=== PATIENT | male | born 1990 | race African-American/Black ===

== ENCOUNTER 2017-05-09 18:34 | Inpatient (IN) | payer MEDICAID, OTHER ==
--- NOTE | 2017-05-09 19:20 | ED ---
General Adult HPI - General Chief complaint: Psychiatric Symptoms Stated complaint: Mental Health Time Seen by Provider: 05/09/17 19:15 Source: patient, RN notes reviewed, old records reviewed Mode of arrival: ambulatory Limitations: no limitations - History of Present Illness Initial comments: This is a 26-year-old male the ER for evaluation of psychiatric illness, suicidal thoughts. Patient has history of depression as her suicidal attempts. Patient states he is an was feeling suicidal earlier today, is brought in by brother for evaluation by psychiatry - Related Data Home Medications Medication Instructions Recorded Confirmed No Known Home Medications [No 05/09/17 05/09/17 Known Home Medications] Allergies Allergy/AdvReac Type Severity Reaction Status Date / Time No Known Allergies Allergy Verified 05/09/17 21:56 Review of Systems ROS Statement: Those systems with pertinent positive or pertinent negative responses have been documented in the HPI. ROS Other: All systems not noted in ROS Statement are negative. Past Medical History Past Medical History: Asthma Additional Past Medical History / Comment(s): personality disorder, patient has reported cutting in past, murmur, palpatations, arthritis. History of Any Multi-Drug Resistant Organisms: MRSA Date of last positivie culture/infection: 2014 MDRO Source:: left leg Past Surgical History: No Surgical Hx Reported Past Anesthesia/Blood Transfusion Reactions: No Reported Reaction Past Psychological History: ADD/ADHD, Anxiety, Bipolar, Depression Smoking Status: Former smoker Past Alcohol Use History: Occasional Past Drug Use History: Marijuana, Prescription Drug Abuse - Past Family History Father Additional Family Medical History / Comment(s): Patient has not had any contact with his father Mother Additional Family Medical History / Comment(s): Mother is alive at age 46 with history of thyroid problems and bipolar. Mother's family has history of bipolar and schizophrenia. Brother(s) Additional Family Medical History / Comment(s): Patient states he has 8 siblings. His girlfriend is reportedly . General Exam Limitations: no limitations General appearance: alert, in no apparent distress Head exam: Present: atraumatic, normocephalic, normal inspection Eye exam: Present: normal appearance, PERRL, EOMI. Absent: scleral icterus, conjunctival injection, periorbital swelling ENT exam: Present: normal exam, mucous membranes moist Neck exam: Present: normal inspection. Absent: tenderness, meningismus, lymphadenopathy Respiratory exam: Present: normal lung sounds bilaterally. Absent: respiratory distress, wheezes, rales, rhonchi, stridor Cardiovascular Exam: Present: regular rate, normal rhythm, normal heart sounds. Absent: systolic murmur, diastolic murmur, rubs, gallop, clicks GI/Abdominal exam: Present: soft, normal bowel sounds. Absent: distended, tenderness, guarding, rebound, rigid Extremities exam: Present: normal inspection, full ROM, normal capillary refill. Absent: tenderness, pedal edema, joint swelling, calf tenderness Back exam: Present: normal inspection Neurological exam: Present: alert, oriented X3, CN II-XII intact Psychiatric exam: Present: normal affect, normal mood Skin exam: Present: warm, dry, intact, normal color. Absent: rash Course Vital Signs 05/09/17 05/09/17 19:02 21:10 Temperature 98.2 F 98.1 F Pulse Rate 71 60 Respiratory 16 29 H Rate Blood Pressure 146/80 120/59 O2 Sat by Pulse 98 98 Oximetry - Reevaluation(s) Reevaluation #1: 05/09/17 19:55 Patient's medically clear Medical Decision Making - Medical Decision Making 26 male who is seen and evaluated with she'll be admitted for psychiatric evaluation Disposition Clinical Impression: Depression, Psychosis Disposition: TRANSFER TO PSYCH HOSP/UNIT Condition: Fair
[2017-05-09 21:15] LABS: Amphetamine Screen,Urine Not Detected (NotDetected); Barbiturate Screen,Urine Not Detected (NotDetected); Benzodiazepines Screen,Urine Not Detected (NotDetected); Cocaine Screen,Urine Not Detected (NotDetected); Methadone Screen, Urine Not Detected (NotDetected); Opiate Screen,Urine Not Detected (NotDetected); Oxycodone Screen, Urine Not Detected (NotDetected); Phencyclidine Screen,Urine Not Detected (NotDetected); Tricyclic Antidepressant,Urine Not Detected (NotDetected); Urn Cannabinoid Scrn Detected (NotDetected)
[2017-05-09 21:48] VITALS: BMI 22.0
[2017-05-10] MEDS ORDERED: ACETAMINOPHEN TAB 325 MG TAB PO PRN (00:54)
[2017-05-10] MEDS ORDERED: MAGNESIUM HYDROXIDE 2,400 MG/10 ML CUP PO PRN (00:54)
[2017-05-10] MEDS ORDERED: MAG HYDROX/AL HYDROX/SIMETH 30 ML CUP PO PRN (00:54)
[2017-05-10] MEDS ORDERED: IBUPROFEN 800 MG TAB PO PRN (11:18)
--- NOTE | 2017-05-10 11:31 | P.MDCNMH ---
History of Present Illness H&P Date: 05/10/17 Chief Complaint: Medical management 26-year-old male past medical history of intermittent asthma, history of depression and bipolar disorder. Patient was brought into the hospital due to suicidal ideation, patient reports that his brother found him hold his Coumadin to his head and attempt to commit suicide he was meditating before committing suicide. He reports overwhelming emotions that affect his personality. He reports successful suicide attempts in the past but he was brought back with CPR using different types of "poison", self-inflicted wounds and cuts, hanging, and overdosing on medications. He currently denies any chest pain or trouble breathing denies any headache nausea or vomiting denies any dizziness or lightheadedness. He denies any changes in his urine urinary habits or bowel habits. He does report generalized body aches that are chronic around his neck and bilateral knee joint. When asked, patient claimed that he doesn't have a gun however he was at a friend's place owns a gun and he found the opportunity to get a hold on the going and attempting suicide however his brother was around who found him and brought him to the hospital. Review of Systems Pertinent positives as noted in HPI. All other systems were reviewed and are negative Past Medical History Past Medical History: Asthma Additional Past Medical History / Comment(s): personality disorder, patient has reported cutting in past, murmur, palpatations, arthritis. History of Any Multi-Drug Resistant Organisms: MRSA Date of last positivie culture/infection: 2014 MDRO Source:: left leg Past Surgical History: No Surgical Hx Reported Past Anesthesia/Blood Transfusion Reactions: No Reported Reaction Past Psychological History: ADD/ADHD, Anxiety, Bipolar, Depression Smoking Status: Former smoker Past Alcohol Use History: Occasional Past Drug Use History: Marijuana, Prescription Drug Abuse - Past Family History Father Family Medical History: No Reported History Additional Family Medical History / Comment(s): Patient has not had any contact with his father Mother Family Medical History: Diabetes Mellitus Additional Family Medical History / Comment(s): Mother is alive at age 46 with history of thyroid problems and bipolar. Mother's family has history of bipolar and schizophrenia. Brother(s) Family Medical History: No Reported History Additional Family Medical History / Comment(s): Patient states he has 8 siblings. His girlfriend is reportedly . Medications and Allergies Home Medications Medication Instructions Recorded Confirmed Type No Known Home Medications [No 05/09/17 05/09/17 History Known Home Medications] Allergies Allergy/AdvReac Type Severity Reaction Status Date / Time No Known Allergies Allergy Verified 05/09/17 21:56 Physical Exam Vitals: Vital Signs Temp Pulse Pulse Resp BP BP Pulse Ox 05/10/17 06:16 98.4 F 61 16 100/64 05/09/17 21:39 98.1 F 62 16 119/71 99 05/09/17 21:10 98.1 F 60 29 H 120/59 98 05/09/17 19:02 98.2 F 71 16 146/80 98 Intake and Output 05/09/17 05/10/17 05/10/17 22:59 06:59 14:59 Other: Weight 69.626 kg 69.626 kg Patient Weight 05/11/17 06:59 Weight 69.626 kg Constitutional: No acute distress, conversant, pleasant Eyes: Anicteric sclerae, moist conjunctiva, no lid-lag Pupils equal round reactive to light ENMT: NC/AT Oropharynx clear, no erythema, exudates Neck: Supple, FROM, no masses, or JVD No carotid bruits No thyromegaly Lungs: Clear to auscultation Clear to percussion Normal respiratory effort, no accessory muscle use Cardiovascular: Heart regular in rate and rhythm, No murmurs, gallops, or rubs No peripheral edema Abdominal: Soft Nontender, no guarding, rebound or rigidity Abdomen moving with respiration Normoactive bowel sounds No hepatomegaly, No splenomegaly No palpable mass No abdominal wall hernia noted Skin: Normal temperature, tone, texture, turgor No induration No subcutaneous nodules No rash, lesions No ulcers Extremities: No digital cyanosis No clubbing Pedal pulses intact and symmetrical Radial pulses intact and symmetrical No calf tenderness Psychiatric: Alert and oriented to person, place and time Appropriate affect Poor judgment Neuro Muscles Strength 5/5 in all 4 extremities Sensation to light touch grossly present throughout No focal sensory deficits Lymphatics: no palpable cervical or supraclavicular , or inguinal lymph nodes Cranial Nerve Examination - Cranial Nerves Cranial Nerve II- Optic: Intact Cranial Nerve III- Oculomotor: Intact Cranial Nerve IV- Trochlear: Intact Cranial Nerve V- Trigeminal: Intact Cranial Nerve - Abducens: Intact Cranial Nerve VII- Facial: Intact Cranial Nerve VIII- Auditory: Intact Cranial Nerve IX- Glossopharyngeal: Intact Cranial Nerve X- Vagus: Intact Cranial Nerve XI- Accessory: Intact Cranial Nerve XII- Hypoglossal: Intact Results Labs: Abnormal Lab Results - Last 24 Hours (Table) 05/09/17 Range/Units 20:56 U Marijuana (THC) Screen Detected H (NotDetected) Assessment and Plan (1) Suicide attempt Narrative/Plan: Suicide precautions Management per psych Current Visit: Yes Status: Acute Code(s): T14.91XA - SUICIDE ATTEMPT, INITIAL ENCOUNTER SNOMED Code(s): 65081639 (2) Depression Narrative/Plan: Management per psych Current Visit: Yes Status: Acute Code(s): F32.9 - MAJOR DEPRESSIVE DISORDER , SINGLE EPISODE, UNSPECIFIED SNOMED Code(s): 27843258 (3) Joint pain Narrative/Plan: Pain control with Motrin as needed Current Visit: Yes Status: Acute Code(s): M25.50 - PAIN IN UNSPECIFIED JOINT SNOMED Code(s): 68655207 (4) DVT prophylaxis Narrative/Plan: Low risk and ambulatory Current Visit: Yes Status: Acute Code(s): MMH5529 - SNOMED Code(s): 836213635 (5) Marijuana abuse Narrative/Plan: Counseled to quit drug of abuse Current Visit: Yes Status: Acute Code(s): F12.10 - CANNABIS ABUSE, UNCOMPLICATED SNOMED Code(s): 88114553 (6) Tobacco abuse Narrative/Plan: Nicotine replacement therapy Patient counseled to quit smoking Current Visit: Yes Status: Acute Code(s): Z72.0 - TOBACCO USE SNOMED Code( s): 528786742 Plan: Thank you for allowing us to participate in the care of this patient. We will follow peripherally. Do not hesitate to contact us with questions. Someone can be reached from the [facility] hospitalist group at all hours of the day at [phone].
[2017-05-10] MEDS ORDERED: OLANZapine 5 MG TAB PO STA (17:15)
[2017-05-10] MEDS: FLUoxetine HCL 20 MG CAP PO SCH (17:26)
[2017-05-10] MEDS: NICOTINE POLACRILEX 2 MG GUM BUCCAL PRN (18:47)
[2017-05-10] MEDS: OLANZapine 5 MG TAB PO SCH (20:49)
[2017-05-11] MEDS: OLANZapine 5 MG TAB PO SCH ×2 (08:57→21:04)
[2017-05-11] MEDS: FLUoxetine HCL 20 MG CAP PO SCH (08:57)
[2017-05-11 09:39] LABS: Basophils % (A) 1 %; Eosinophils # (A) 0.1 k/uL (0-0.7); Eosinophils % (A) 2 %; HCT 48.1 % (39.0-53.0); HGB 16.1 gm/dL (13.0-17.5); Lymphocytes # (A) 1.7 k/uL (1.0-4.8); Lymphocytes % (A) 30 %; MCH 30.7 pg (25.0-35.0); MCHC 33.5 g/dL (31.0-37.0); MCV 91.7 fL (80.0-100.0); Mean Platelet Volume 6.6; Monocytes # (A) 0.2 k/uL (0-1.0); Monocytes % (A) 4 %; Neutrophils # (A) 3.4 k/uL (1.3-7.7); Neutrophils % (A) 61 %; Platelet Count 310 k/uL (150-450); RBC 5.25 m/uL (4.30-5.90); RDW 12.8 % (11.5-15.5); WBC 5.5 k/uL (3.8-10.6)
[2017-05-11 10:05] LABS: ALT 29 U/L (21-72); AST 20 U/L (17-59); Albumin 4.9 g/dL (3.5-5.0); Alkaline Phosphatase 43 U/L (38-126); Anion Gap 14 mmol/L; Blood Urea Nitrogen 20 mg/dL (9-20); Calcium 10.3 mg/dL (8.4-10.2); Carbon Dioxide 28 mmol/L (22-30); Chloride 103 mmol/L (98-107); Glucose 85 mg/dL (74-99); Sodium 145 mmol/L (137-145); Total Bilirubin 0.8 mg/dL (0.2-1.3); Total Protein 7.8 g/dL (6.3-8.2)
[2017-05-11] MEDS ORDERED: IBUPROFEN 800 MG TAB PO STA (18:19)
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
[2017-05-11] MEDS: NICOTINE POLACRILEX 2 MG GUM BUCCAL PRN (21:05)
[2017-05-11] MEDS ORDERED: IBUPROFEN 800 MG TAB PO SCH (22:00)
[2017-05-12] MEDS: IBUPROFEN 800 MG TAB PO SCH ×3 (09:14→17:50)
[2017-05-12] MEDS: FLUoxetine HCL 20 MG CAP PO SCH (09:15)
[2017-05-12] MEDS: OLANZapine 5 MG TAB PO SCH ×2 (09:15→20:36)
[2017-05-12] MEDS: NICOTINE POLACRILEX 2 MG GUM BUCCAL PRN (09:16)
[2017-05-13] MEDS: IBUPROFEN 800 MG TAB PO SCH ×3 (08:28→18:40)
[2017-05-13] MEDS: NICOTINE POLACRILEX 2 MG GUM BUCCAL PRN ×3 (08:28→21:01)
[2017-05-13] MEDS: OLANZapine 5 MG TAB PO SCH ×2 (08:28→20:35)
[2017-05-13] MEDS: FLUoxetine HCL 20 MG CAP PO SCH (08:28)
--- NOTE | 2017-05-13 18:15 | PN ---
PROGRESS NOTE DATE OF SERVICE: 05/12/2017. CHIEF COMPLAINT: The patient presented with depression and suicidal thinking. He has long-term issues with mood disorder. He has had a lot of ongoing stress issues with family issues, relationships, and legal problems. INTERVAL HISTORY: The patient has been doing fair. He had a quiet evening last night. He slept fair today. He has been up. He comes out in the day area. He will interact with others. It is noted that earlier in his hospital stay he seemed a little more upbeat and energetic. In the last few days, he presents in a more withdrawn manner. He seems to focus mainly on things he will be facing on discharge. He does say that he has a job waiting doing [employer]. He has not had change in his general health. He tolerates his psychotropic medications. MENTAL STATUS: Patient gave fair eye contact. Psychomotor activity was a little restless. Speech was clear. His affect was somewhat blunted. His mood was quiet. He did not appear to be distressed. ASSESSMENT: I will continue the current diagnosis and treatment plan. I will continue psychotropic medications the same. Patient appears to be making progress. We will focus on stabilization and discharge planning. MMODL / IJN: [id number] /
--- NOTE | 2017-05-13 18:18 | PN ---
PROGRESS NOTE DATE OF SERVICE: 05/13/2017. CHIEF COMPLAINT: The patient was admitted due to depression with suicidal thinking. He has had long- term issues with depression. He is contemplating shooting himself with a shotgun. He has ongoing issues with marijuana. INTERVAL HISTORY: Patient has been doing fair. He had a quiet evening last night. He slept fair today. He has been up and about. He wanders about the unit. He will interact some with others. He feels that in general, his mood is a little improved. He has a somewhat brighter outlook. We talked about the possibility of his setting up a family meeting with his brother who seems to be a primary support person for him. He said that that would be appropriate and it might be reasonable to also engage his mother and possibly a cousin. He is anticipating going back to live with his brother at least short term. 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 He has not had change in his general health. He tolerates his psychotropic medications. MENTAL STATUS: Patient gave fair eye contact. Psychomotor activity was a little slowed. Speech was monotone. He answered questions with brief responses. His thoughts were clear. His affect was blunted. His mood reserved. He did not seem significantly distressed. ASSESSMENT: I will continue the current diagnosis and treatment plan. I will continue psychotropic medications the same. We will continue to focus on stabilization and discharge planning. We will look to set up a family meeting with the patient's supports. I would anticipate discharging the patient in the next few days. ELAYNE / LARISA: [id number] /
[2017-05-13] MEDS: IMIPRAMINE 25 MG TAB PO SCH (20:35)
[2017-05-14] MEDS: FLUoxetine HCL 20 MG CAP PO SCH (09:29)
[2017-05-14] MEDS: NICOTINE POLACRILEX 2 MG GUM BUCCAL PRN ×3 (09:29→20:08)
[2017-05-14] MEDS: IBUPROFEN 800 MG TAB PO SCH ×3 (09:30→18:02)
[2017-05-14] MEDS: OLANZapine 5 MG TAB PO SCH ×2 (09:31→20:07)
[2017-05-14] MEDS: IMIPRAMINE 25 MG TAB PO SCH (20:08)
--- NOTE | 2017-05-15 04:46 | PN ---
PROGRESS NOTE DATE OF SERVICE: 05/14/2017 CHIEF COMPLAINT: The patient was admitted due to depression with suicidal thinking. He has had long- term issues with depression. He was contemplating shooting himself with a shotgun. He has ongoing issues with marijuana. INTERVAL HISTORY: Patient has been doing fair. He had a quiet evening last night. He slept fairly well. Today he has been up early in the morning. He seemed to be doing okay. Then he had a telephone call with his brother. The best I could tell his brother they have indicated that he will not be living there when he is discharged. The patient became very distressed. He was crying. He said he needed some p.r.n. medication. He rambled about how other people take advantage of him and abuse him. He did receive Zyprexa 5 mg. As the day went on he seemed to do a little better. I saw him again in the evening with his mother. She appeared to be supportive. She discussed with him the issues about him needing to take care of himself and having less focus on the rest of the family. We did discuss discharge planning and the possibility of setting up a family meeting with the mother as well as the [facility] staff and our staff in order to develop a good followup plan for the patient. We continue to focus on the idea of his needing to address early withdrawal issues as the primary factor at present and that mood issues are a big part of withdrawal for at least the first few weeks of withdrawal. He has not had change in his general health. He tolerates his psychotropic medications. MENTAL STATUS: Patient was quite distressed when I saw him in the early afternoon, though later on he was calm. He gave good eye contact. He was appropriate in his manner. He had a quiet mood. He did not appear to be distressed. ASSESSMENT: I will continue the current diagnosis and treatment plan. I will continue psychotropic medications the same. I again continue to discuss with the patient the need to address acute withdrawal issues over the next few weeks in particular and that I would anticipate gradual lessening of mood problems as he moves through early withdrawal. We will look to set up a family meeting as part of discharge planning. We will continue to focus on stabilization and discharge planning. MMCASEY / MARYN: [id number] /
[2017-05-15 06:40] VITALS: RESP 16
[2017-05-15] MEDS: FLUoxetine HCL 20 MG CAP PO SCH (08:49)
[2017-05-15] MEDS: OLANZapine 5 MG TAB PO SCH ×2 (08:49→20:37)
[2017-05-15] MEDS: IBUPROFEN 800 MG TAB PO SCH ×3 (08:49→17:20)
[2017-05-15] MEDS: NICOTINE POLACRILEX 2 MG GUM BUCCAL PRN ×2 (12:43→20:40)
[2017-05-15] MEDS ORDERED: IMIPRAMINE 25 MG TAB PO SCH (21:00)
--- NOTE | 2017-05-16 05:01 | PN ---
PROGRESS NOTE DATE OF SERVICE: 05/15/2017 CHIEF COMPLAINT: The patient was admitted due to depression with suicidal thinking. He has had long- term issues with depression. He was contemplating shooting himself with a shotgun. He has ongoing issues with marijuana. INTERVAL HISTORY: Patient has been doing fair. He had a quiet evening last night. He slept fairly well. Today he has been up. He attends groups. Overall, his mood is a little more even than it had been yesterday. He says that he has been able to work out some discharge plans including finding a place to live. He still is distressed about what occurred between him and his brother. However, he sees that he needs to focus on himself and things he needs to do for his future and not to be concerned about issues of other family members. He has been in touch with his girlfriend. He may be living with her. He is going to set up a family meeting with her and his mother, who are his primary supports. He has a little better outlook. We will need to clarify a number of discharge issues. We continue to discuss how early withdrawal from marijuana may be impacting him. He says that he has gained some insight about the idea that marijuana is not likely to be a very useful drug for him and he is willing to work on staying off of marijuana altogether. He has not had change in his general health. He tolerates his psychotropic medications. MENTAL STATUS: Patient gave fairly good eye contact. He had a somewhat withdrawn manner. He was a little slow in his speech. His affect was blunted. His mood was somewhat down though it seemed to be appropriate to his situation and issues that he is dealing with. The plan is for a family meeting tomorrow and from there set up discharge plans. We may be able to discharge the patient tomorrow and if he and his supports are comfortable with a followup plan to address important issues. MMODL / IJN: [id number] /
[2017-05-16 07:04] VITALS: BP 131/60; PULSE 56; TEMP 97.9
[2017-05-16] MEDS: IBUPROFEN 800 MG TAB PO SCH (08:41)
[2017-05-16] MEDS: FLUoxetine HCL 20 MG CAP PO SCH (08:41)
[2017-05-16] MEDS: NICOTINE POLACRILEX 2 MG GUM BUCCAL PRN (08:42)
[2017-05-16] MEDS ORDERED: OLANZapine 2.5 MG TAB PO SCH (09:00)
--- NOTE | 2017-05-16 12:03 | DS ---
DISCHARGE SUMMARY DATE OF SERVICE: 05/16/2017 DATE OF ADMISSION: 05/09/2017 DATE OF DISCHARGE: 05/16/2017 ADMISSION AND DISCHARGE DIAGNOSES: 1. Major depression, chronic, recurrent, severe with acute exacerbation, nonpsychotic. 2. Posttraumatic stress disorder. 3. Marijuana dependence. 4. Osteoarthritis. 5. Asthma. HISTORY OF PRESENTING ILLNESS: The patient is a 26-year-old male. He had 2 prior psychiatric hospitalizations including August 03 and November 17, 2015. Those admissions were for depression. He had made suicide attempt by overdose. The overdose was precipitated by an argument with a girlfriend. He had declined taking any medications during his prior hospitalizations. Currently he was having increasing problems with depression. He had suicidal thinking. He had long-term issues with mood disorder. There were ongoing stress issues with family, relationships and legal problems. He was continuing to use marijuana on a daily basis. There were stress issues with an ex-girlfriend and their son who is 10- 1/2 months old. He was on no psychotropic medications at the time of admission. He was admitted for further evaluation. PAST MEDICAL HISTORY AND PHYSICAL EXAM: As per Dr. Valdes. MENTAL STATUS EXAM: The patient was slowed in movements. Thoughts were clear. He did not say a lot. He was not spontaneous or interactive. He had a monotone voice. His affect flat. Mood depressed. He was moderately distressed. There was no indication of thought disorder. Cognition was clear. COURSE OF HOSPITALIZATION: Patient was admitted for comprehensive medical psychiatric and psychosocial evaluation. We engaged the patient in individual and group therapeutic activities. I discussed with the patient that the primary focus relating to his medications were managing early acute marijuana withdrawal and to work towards abstinence from marijuana up. The patient was started on Prozac 20 mg a day for depression. I discussed with the patient that I would anticipate little or no benefit from the antidepressant in the first 6 weeks until he is through the early course of withdrawal from marijuana. Beyond that, the antidepressant may begin showing some benefits. The patient was started on Zyprexa 5 mg twice a day. The aim of Zyprexa was to help reduce physiologic stress response as it related to acute marijuana withdrawal symptoms as well as to address some PTSD symptoms that the patient had. He did have problems with sleep issues including midcycle awakening with nightmares. As such I started the patient on Tofranil 25 mg a day. The aim was to improve sleep architecture which allows for dreaming to occur in stage IV sleep. The patient did have some pain issues and was also given Motrin during the early course of his hospitalization. Patient had ups and downs in his functioning. There were times where he could seemed quite upbeat and positive. He would appear superficially bright. However, on one-to-one interactions, he would show a lot of down mood. He seemed to suggest a lot of underlying anger. He talked quite a bit about many situations he has been in where he takes care of other people than he gets used and feels that he loses everything while people around him gain from his losses. He had issues with his brother that seemed to be in the same situation as other relationship problems he has had. At one point during the hospitalization, his brother called and indicated that he would not be able to return to live with his brother, that caused him significant distress. He got into quite a severe anxiety with panic and crying spell. He was able to work his way out of that. He had visits with his mother where the 2 of them were able to discuss some future planning issues. He seemed to feel supported by his mother. We had family meetings to work towards discharge planning. It was noteworthy that one issue came up is that the patient is currently on probation, though also has some legal issues pending in [facility] as well. Mother seemed to suggest that the problem is that the patient gets frustrated and angry and then acts out impulsively. It is also noted that a number of years ago he had excessive drug use and was found unconscious. He was maintained in a medically induced coma for about 3 days as part of the recovery process. Mother believed that there were some emotional issues that seem to arise after that, particularly where he had a lot of problems with anger, irritability, and probably impulsive behavior. The patient seemed to indicate that having his [id number] son is a positive force for him. He feels he needs to be more connected and responsible to his son. We have had extensive discussions regarding marijuana issues including marijuana withdrawal and the critical issue of marijuana use in the face of significant mood difficulties. The patient voiced motivation to continue off marijuana altogether. In the final planning meeting, the mother did express some discouragement about problems that he has seemed to continually run into, though she was willing to support him towards hopefully making progress including addressing all his legal issues to get those behind him. CONDITION AT DISCHARGE: Patient was stable. Mood improved. He tolerated his medications well. He was able to voice motivation towards maintaining abstinence for marijuana, though there was also concern that his insight in this regard was limited, which in part may well relate to being in the early course of marijuana withdrawal. RECOMMENDATIONS AND FOLLOWUP: Patient is discharged to home. He will be living with his mother. Discharge medications include: 1. Prozac 20 mg a day. 2. Zyprexa 5 mg twice a day, though the patient was directed that he could take 10 mg at bedtime. 3. Tofranil 37.5 mg a day/. 4. Motrin 800 mg 3 times a day. He has a followup appointment at [facility] in one week. MMODL / IJN: [id number] / MTDD
[2017-05-16] MEDS ORDERED: OLANZapine 5 MG TAB PO SCH (21:00)
== END 2017-05-16 12:06 | disposition home or self-care (01) | DRG 885 ==
LOC: EC 18:34 → 3MHU 20:52
PROVIDERS: ADMIT Psychiatry & Neurology Psychiatry; ATTEND Psychiatry & Neurology Psychiatry
DX: F33.2 Major depressive disorder, recurrent severe without psychotic features (principal); F12.288 Cannabis dependence with other cannabis-induced disorder; F43.10 Post-traumatic stress disorder, unspecified; M19.90 Unspecified osteoarthritis, unspecified site; J45.909 Unspecified asthma, uncomplicated; G47.8 Other sleep disorders; Z62.811 Personal history of psychological abuse in childhood; F90.9 Attention-deficit hyperactivity disorder, unspecified type; Z62.810 Personal history of physical and sexual abuse in childhood; Z87.891 Personal history of nicotine dependence; Z81.8 Family history of other mental and behavioral disorders; Z65.3 Problems related to other legal circumstances; Z91.5 Personal history of self-harm
CPT/HCPCS: 80053; 80306; 82075; 84443; 85025; 99285

== ENCOUNTER 2017-10-29 23:25 | Emergency (ER) | payer MEDICAID, OTHER ==
[2017-10-29 23:34] VITALS: RESP 18
[2017-10-30] MEDS ORDERED: cefTRIAXone IN SWFI 1,000 MG/10 ML SYRINGE IVP STA (00:21)
[2017-10-30] MEDS ORDERED: SODIUM CHLORIDE 0.9% 1,000 ML IV ONE (00:21)
[2017-10-30] MEDS ORDERED: VANCOMYCIN IV PER PHARMACY 1 EACH MISC MISCELLANE PRN (00:21)
[2017-10-30 00:41] LABS: Basophils % (A) 0 %; Eosinophils # (A) 0.1 k/uL (0-0.7); Eosinophils % (A) 1 %; HGB 14.6 gm/dL (13.0-17.5); Lymphocytes # (A) 1.3 k/uL (1.0-4.8); Lymphocytes % (A) 13 %; MCH 30.9 pg (25.0-35.0); MCHC 33.9 g/dL (31.0-37.0); MCV 91.1 fL (80.0-100.0); Mean Platelet Volume 6.5; Monocytes # (A) 0.4 k/uL (0-1.0); Monocytes % (A) 4 %; Neutrophils # (A) 7.6 k/uL (1.3-7.7); Neutrophils % (A) 80 %; Platelet Count 240 k/uL (150-450); RBC 4.71 m/uL (4.30-5.90); RDW 13.5 % (11.5-15.5); WBC 9.5 k/uL (3.8-10.6)
[2017-10-30 00:58] LABS: ALT 31 U/L (21-72); AST 22 U/L (17-59); Albumin 4.1 g/dL (3.5-5.0); Alkaline Phosphatase 45 U/L (38-126); Anion Gap 14 mmol/L; Blood Urea Nitrogen 15 mg/dL (9-20); Carbon Dioxide 24 mmol/L (22-30); Chloride 104 mmol/L (98-107); Glucose 92 mg/dL (74-99); Potassium 3.9 mmol/L (3.5-5.1); Sodium 142 mmol/L (137-145); Total Bilirubin 0.3 mg/dL (0.2-1.3); Total Protein 6.5 g/dL (6.3-8.2)
[2017-10-30] MEDS ORDERED: VANCOMYCIN 1,250 MG in SODIUM CHLORIDE 0.9% 250 ML IVPB STA (01:00)
--- NOTE | 2017-10-30 01:11 | XR ---
EXAMINATION TYPE: XR knee complete RT DATE OF EXAM: 10/30/2017 COMPARISON: NONE HISTORY: Knee pain TECHNIQUE: 3 views FINDINGS: I see no fracture nor dislocation. Joint spaces are normal. There is no sign of knee joint effusion. There is some deformity at the tibial tubercle consistent with old osteochondrosis. There i s mild anterior soft tissue swelling. IMPRESSION: There is some soft tissue swelling anterior to the patella that could relate to bursitis.
[2017-10-30 01:19] LABS: Erythrocyte Sedimentation Rate 12 mm/hr (0-15)
[2017-10-30] MEDS ORDERED: KETOROLAC 30 MG/ML 1 ML VIAL IVP STA (02:11)
--- NOTE | 2017-10-30 03:01 | ED ---
General Adult HPI - General Chief complaint: Extremity Injury, Lower Stated complaint: Knee injury Time Seen by Provider: 10/29/17 23:43 Source: patient Mode of arrival: wheelchair Limitations: no limitations - History of Present Illness Initial comments: 27-year-old male patient presents to the emergency department today for complaints of right knee pain and swelling. Patient states that he dropped somewhat on his knee approximately one week ago did sustain some abrasions. Patient states couple days after this he developed a pimple on the right lateral aspect of the knee, states that he popped it. Patient states he woke today and had diffuse swelling surrounding the knee with erythema and pain radiating up the leg. Patient states that the lymph nodes in his right groin or swelling. Patient states for the last couple of days he has been fatigued and rundown. He denies any known fevers. States that the pain is quite severe. States he is unable to bend the knee. Denies any numbness or tingling to the leg. Denies any significant medical history. Denies any drug or alcohol use. Patient denies any recent rash, shortness breath, chest pain, abdominal pain, nausea, vomiting, diarrhea, constipation, back pain, dizziness, hematuria , dysuria, urinary urgency, urinary frequency, headache, visual changes, or any other complaints. - Related Data Previous Rx's Medication Instructions Recorded FLUoxetine HCL [PROzac] 20 mg PO DAILY #30 cap 05/16/17 Ibuprofen [Motrin] 800 mg PO TID-W/MEALS #90 tab 05/16/17 Imipramine [Tofranil] 37.5 mg PO HS #30 tab 05/16/17 Nicotine Polacrilex [Nicorette] 2 mg BUCCAL Q6HR PRN gum 05/16/17 OLANZapine [ZyPREXA] 5 mg PO BID #30 tab 05/16/17 Amoxic-Pot Clav 875-125Mg 1 tab PO Q12HR #20 tablet 10/30/17 [Augmentin 875-125] Ibuprofen [Motrin] 600 mg PO Q8HR PRN #30 tab 10/30/17 Allergies Allergy/AdvReac Type Severity Reaction Status Date / Time No Known Allergies Allergy Verified 10/29/17 23:34 Review of Systems ROS Statement: Those systems with pertinent positive or pertinent negative responses have been documented in the HPI. ROS Other: All systems not noted in ROS Statement are negative. Past Medical History Past Medical History: Asthma Additional Past Medical History / Comment(s): personality disorder, patient has reported cutting in past, murmur, palpatations, arthritis. History of Any Multi-Drug Resistant Organisms: MRSA Date of last positivie culture/infection: 2014 MDRO Source:: left leg Past Surgical History: No Surgical Hx Reported Past Anesthesia/Blood Transfusion Reactions: No Reported Reaction Past Psychological History: ADD/ADHD, Anxiety, Bipolar, Depression Smoking Status: Former smoker Past Alcohol Use History: Occasional Past Drug Use History: Marijuana, Prescription Drug Abuse - Past Family History Father Family Medical History: No Reported History Additional Family Medical History / Comment(s): Patient has not had any contact with his father Mother Family Medical History: Diabetes Mellitus Additional Family Medical History / Comment(s): Mother is alive at age 46 with history of thyroid problems and bipolar. Mother's family has history of bipolar and schizophrenia. Brother(s) Family Medical History: No Reported History Additional Family Medical History / Comment(s): Patient states he has 8 siblings. His girlfriend is reportedly . General Exam Limitations: no limitations General appearance: alert, in no apparent distress, other (This is a well- developed, well-nourished adult male patient in no acute distress. Vital signs upon presentation are temperature 98.5F, pulse 77, respirations 18, blood pressure 122/59, pulse ox 98% on room air.) Eye exam: Present: normal appearance, PERRL, EOMI. Absent: scleral icterus, conjunctival injection, periorbital swelling ENT exam: Present: normal exam, normal oropharynx, mucous membranes moist Respiratory exam: Present: normal lung sounds bilaterally. Absent: respiratory distress, wheezes, rales, rhonchi, stridor Cardiovascular Exam: Present: regular rate, normal rhythm, normal heart sounds. Absent: systolic murmur, diastolic murmur, rubs, gallop, clicks GI/Abdominal exam: Present: soft, normal bowel sounds. Absent: distended, tenderness, guarding, rebound, rigid Extremities exam: Present: tenderness (Tenderness over the right anterior knee) , normal capillary refill, joint swelling (Right knee swelling), other (Right knee swelling and erythema. Right inguinal lymphadenopathy.). Absent: normal inspection, full ROM (Severe pain with attempts at flexion of the right knee), pedal edema, calf tenderness Neurological exam: Present: alert, oriented X3, CN II-XII intact Psychiatric exam: Present: normal affect, normal mood Skin exam: Present: warm, dry, intact, normal color. Absent: rash Course Vital Signs 10/29/17 10/30/17 10/30/17 23:32 01:54 03:44 Temperature 98.5 F 99.3 F Pulse Rate 77 84 68 Respiratory 18 18 18 Rate Blood Pressure 122/59 115/64 119/53 O2 Sat by Pulse 98 98 99 Oximetry Medical Decision Making - Medical Decision Making 27-year-old male patient presented to the emergency department today for evaluation of redness, swelling, and pain to the right knee. Physical examination did reveal erythema, swelling surrounding the right knee joint, and right inguinal lymphadenopathy. Patient is afebrile. Vital signs are stable. Labs reviewed and are unremarkable. X-ray of the knee showed soft tissue swelling but no effusion. CT showed subcutaneous edema surrounding the right knee but no evidence of fluid collection or concern for necrotizing fasciitis. Patient be discharged home on Augmentin. We given ibuprofen for pain control. He is instructed to follow-up with the primary care physician, he was given Dr. Galloway as a referral. He is instructed to return here immediately for any new , worsening, or concerning symptoms. He verbalizes understanding and agrees with this plan. - Lab Data Result diagrams: 10/30/17 00:13 10/30/17 00:13 Lab Results 10/30/17 10/30/17 10/30/17 Range/Units 00:13 00:13 00:13 WBC 9.5 (3.8-10.6) k/uL RBC 4.71 (4.30-5.90) m/uL Hgb 14.6 (13.0-17.5) gm/dL Hct 43.0 (39.0-53.0) % MCV 91.1 (80.0-100.0) fL MCH 30.9 (25.0-35.0) pg MCHC 33.9 (31.0-37.0) g/dL RDW 13.5 (11.5-15.5) % Plt Count 240 (150-450) k/uL Neutrophils % 80 % Lymphocytes % 13 % Monocytes % 4 % Eosinophils % 1 % Basophils % 0 % Neutrophils # 7.6 (1.3-7.7) k/uL Lymphocytes # 1.3 (1.0-4.8) k/uL Monocytes # 0.4 (0-1.0) k/uL Eosinophils # 0.1 (0-0.7) k/uL Basophils # 0.0 (0-0.2) k/uL ESR 12 (0-15) mm/hr Sodium 142 (137-145) mmol/L Potassium 3.9 (3.5-5.1) mmol/L Chloride 104 (98-107) mmol/L Carbon Dioxide 24 (22-30) mmol/L Anion Gap 14 mmol/L BUN 15 (9-20) mg/dL Creatinine 0.90 (0.66-1.25) mg/dL Est GFR (CKD-EPI)AfAm >90 (>60 ml/min/1.73 sqM) Est GFR (CKD-EPI)NonAf >90 (>60 ml/min/1.73 sqM) Glucose 92 (74-99) mg/dL Plasma Lactic Acid Harjinder 1.6 (0.7-2.0) mmol/L Calcium 9.0 (8.4-10.2) mg/dL Total Bilirubin 0.3 (0.2-1.3) mg/dL AST 22 (17-59) U/L ALT 31 (21-72) U/L Alkaline Phosphatase 45 (38-126) U/L Total Protein 6.5 (6.3-8.2) g/dL Albumin 4.1 (3.5-5.0) g/dL - Radiology Data Radiology results: report reviewed, image reviewed CT of the right lower extremity with contrast was obtained. Report was reviewed in its entirety. Impression by Dr. Mabry shows no vascular abnormality identified. There is lateral, anterior, and posterior subcutaneous edema at the right knee. I do not see a drainable fluid collection. 3 views of the right knee are obtained. This no fracture or dislocation. Joint spaces are normal. There is no sign of any joint effusion. There is some deformity at the tibial tubercle consistent with old osteochondrosis. There is mild anterior soft tissue swelling. Impression by Dr. Mabry shows soft tissue swelling anterior to the patella but could relate bursitis. Disposition Clinical Impression: Cellulitis Disposition: HOME SELF-CARE Condition: Good Instructions: Cellulitis (ED) Additional Instructions: Rest and elevate knee. Take antibiotics as prescribed. Return here immediately for any new, worsening, or concerning symptoms. Prescriptions: Amoxic-Pot Clav 875-125Mg [Augmentin 875-125] 1 tab PO Q12HR #20 tablet Ibuprofen [Motrin] 600 mg PO Q8HR PRN #30 tab PRN Reason: Pain Is patient prescribed a controlled substance at d/c from ED?: No Referrals: Darby Galloway MD [STAFF PHYSICIAN] - 1-2 days Time of Disposition: 04:06
--- NOTE | 2017-10-30 03:44 | CT ---
EXAMINATION TYPE: CT lower extremity RT w con DATE OF EXAM: 10/30/2017 COMPARISON: NONE HISTORY: Support beam fell on pt.'s right knee CT DLP: 1468 mGycm Automated exposure control for dose reduction was used. CONTRAST: Performed with IV Contrast, patient injected with 125 mL of Isovue 370. FINDINGS: Images were obtained from the top of the kidneys to the bottom of the feet with the contrast. Renal arteries appear normal. There is patency of the celiac artery and the superior mesenteric arter y. Abdominal aorta has normal size. Abdominal aorta appears normal. There is wide patency of the iliac arteries. There is wide patency of the femoral arteries. Popliteal arteries appear widely patent. There is bilateral patency of the tib ial artery trifurcation. There is normal contrast opacification of the veins in both legs. There is s ubcutaneous edema on the lateral aspect of the right knee. This measures up to 10 mm in thickness. Th ere is no sign of knee joint effusion. I see no bony destructive process. The muscles above and below the right knee are symmetric. There is arterial flow in both posterior tibial arteries at the ankle. IMPRESSION: NO VASCULAR ABNORMALITY IDENTIFIED. THERE IS LATERAL ANTERIOR AND POSTERIOR SUBCUTANEOUS EDEMA AT THE RIGHT KNEE. I do not see a drainable fluid collection.
[2017-10-30] MEDS ORDERED: DIPH,PERTUS(ACELL)TETVAC-LF 0.5 ML VIAL IM ONE (04:04)
[2017-10-30 05:04] VITALS: TEMP 100.3
[2017-10-30] MEDS ORDERED: ACETAMINOPHEN TAB 500 MG TAB PO STA (05:21)
[2017-10-30 05:22] VITALS: BP 128/58; PULSE 65
== END 2017-10-30 05:30 | disposition home or self-care (01) ==
LOC: EC 23:25 → EEVIPCON 23:25 → EC 10-30 05:30
DX: L03.115 Cellulitis of right lower limb (principal); R59.0 Localized enlarged lymph nodes; R53.83 Other fatigue; Z87.891 Personal history of nicotine dependence; Z86.14 Personal history of Methicillin resistant Staphylococcus aureus infection; Z23 Encounter for immunization
CPT/HCPCS: 36415; 80053; 85652; 83605; 85025; 87040; 73562; 73701; 90715; 99284; 96365; 96366; 96375 ×2; 96361; 90471; J3370; J0696; J1885; Q9967